=== PATIENT | male | born 1970 | race Caucasian/White ===

== ENCOUNTER 2022-03-05 14:25 | Emergency (ER) | payer OTHER ==
[~2022-03-05] VITALS: Ht 180.3 cm; Wt 95.2 kg
[~2022-03-05 14:25] MED LIST: IBUP600 PO; METO25; MONT10T PO
[2022-03-05] MEDS ORDERED: Lisinopril2.5 MG (15:49)
== END 2022-03-05 16:24 | disposition home or self-care (01) ==
LOC: ER 14:25
DX: M79.661 Pain in right lower leg (principal); I10 Essential (primary) hypertension; W01.0XXA Fall on same level from slipping, tripping and stumbling without subsequent striking against object, initial encounter; Z79.899 Other long term (current) drug therapy
CPT/HCPCS: 96372; 99283-25; J1885